=== PATIENT | female | born 1995 | race African-American/Black ===

== ENCOUNTER 2016-08-04 12:10 | Emergency (ER) | payer OTHER, SELFPAY ==
[2016-08-04 12:59] LABS: Bilirubin Negative (Negative); Blood, Urine Large (Negative); Clarity Slightly Cloudy (Clear); Glucose, Urine (Dipstick) Negative (Negative); Leukocyte Trace (Negative); Nitrite Negative (Negative); Protein, Urine (Dipstick) 30 mg/dL (Neg-Trace); Specific Gravity, Urine 1.025 (1.005-1.030); Urobilinogen 0.2 mg/dL (0.2-1.0)
[2016-08-04 13:00] LABS: Pregnancy Test - Urine (BHCG) Negative (Negative); Pregu Control Background? CLEAR/WHITE (CLR/WHITE); Pregu Control Bar Appear? YES (CONTROL BAR); Specific Gravity 1.025 (1.002-1.036)
[2016-08-04 13:11] LABS: Bacteria/HPF 2+ HPF (None Seen); RBC/HPF 21-50 HPF (0-3); Transitional Epithelial 0-3 HPF (0-3); WBC/HPF 21-50 HPF (0-3)
[2016-08-07 13:09] LABS: Chlamydia by PCR DETECTED (NotDetected); GC by PCR Not Detected (NotDetected)
== END 2016-08-04 13:25 | disposition home or self-care (01) ==
LOC: BURERS 12:10
DX: N30.01 Acute cystitis with hematuria (principal); N76.0 Acute vaginitis; F41.9 Anxiety disorder, unspecified; F32.9 Major depressive disorder, single episode, unspecified
CPT/HCPCS: 81003; 81015; 81025; 87480; 87491; 87510; 87591; 87660; 99284

== ENCOUNTER 2016-09-09 08:20 | Emergency (ER) | payer MEDICAID | END 2016-09-09 09:36 | disposition home or self-care (01) | LOC: BURERS 08:23 | DX: S01.81XA Laceration without foreign body of other part of head, initial encounter (principal); F41.9 Anxiety disorder, unspecified; F32.9 Major depressive disorder, single episode, unspecified; Y08.09XA Assault by strike by other specified type of sport equipment, initial encounter | CPT/HCPCS: 12011 ==

== ENCOUNTER 2017-01-26 16:08 | Emergency (ER) | payer MEDICAID, OTHER ==
[2017-01-26] MEDS ORDERED: Dexamethasone 4 mg/ml Vial ONE (16:31)
== END 2017-01-26 16:36 | disposition home or self-care (01) ==
LOC: BURERS 16:08
DX: J02.9 Acute pharyngitis, unspecified (principal); F41.9 Anxiety disorder, unspecified; F32.9 Major depressive disorder, single episode, unspecified
CPT/HCPCS: 99283; J1100

== ENCOUNTER 2017-07-08 09:17 | Emergency (ER) | payer OTHER ==
[2017-07-08 10:31] LABS: Bilirubin Negative (Negative); Blood, Urine Negative (Negative); Clarity Clear (Clear); Glucose, Urine (Dipstick) Negative (Negative); Leukocyte Trace (Negative); Nitrite Negative (Negative); Protein, Urine (Dipstick) Negative (Neg-Trace); Urobilinogen 0.2 mg/dL (0.2-1.0)
[2017-07-08 10:32] LABS: Bacteria/HPF 1+ HPF (None Seen); Crystals/HPF 1+ AMORPH URATES HPF (Negative); RBC/HPF None Seen HPF (0-3); WBC/HPF 0-3 HPF (0-3)
[2017-07-11 02:07] LABS: Chlamydia by PCR Not Detected (NotDetected); GC by PCR Not Detected (NotDetected)
== END 2017-07-08 11:00 | disposition home or self-care (01) ==
LOC: BURERS 09:17
DX: N76.0 Acute vaginitis (principal)
CPT/HCPCS: 81003; 81015; 87480; 87491; 87510; 87591; 87660; 99283

== ENCOUNTER 2017-07-09 22:39 | Emergency (ER) | payer OTHER | END 2017-07-09 23:00 | disposition home or self-care (01) | LOC: BURERS 22:39 | DX: L03.012 Cellulitis of left finger (principal); F17.210 Nicotine dependence, cigarettes, uncomplicated | CPT/HCPCS: 99283 ==

== ENCOUNTER 2018-01-07 08:10 | Emergency (ER) | payer OTHER ==
[2018-01-07] MEDS ORDERED: Lidocaine 1% PF 5 ML VIAL ONE (08:43)
[2018-01-07] MEDS ORDERED: cefTRIAXone\\ROCEPHIN 1 GM VIAL ONE (08:43)
[2018-01-07] MEDS ORDERED: methylPREDNISolone Sod Succ/PF 125 MG/2 ML VIAL ONE ×2 (08:43→08:46)
== END 2018-01-07 09:03 | disposition home or self-care (01) ==
LOC: BURERS 08:10
DX: J03.90 Acute tonsillitis, unspecified (principal); F41.9 Anxiety disorder, unspecified; F32.9 Major depressive disorder, single episode, unspecified
CPT/HCPCS: 96372; J0696; J2001; J2930

== ENCOUNTER 2018-05-14 22:01 | Emergency (ER) | payer OTHER | END 2018-05-14 22:14 | disposition home or self-care (01) | LOC: BURERS 22:01 | DX: S61.012A Laceration without foreign body of left thumb without damage to nail, initial encounter (principal); F41.9 Anxiety disorder, unspecified; F32.9 Major depressive disorder, single episode, unspecified; W26.0XXA Contact with knife, initial encounter | CPT/HCPCS: 12001 ==

== ENCOUNTER 2018-05-16 09:25 | Emergency (ER) | payer OTHER ==
[2018-05-16] MEDS ORDERED: Bacitracin Zinc 1 Packet ONE (09:39)
== END 2018-05-16 09:45 | disposition home or self-care (01) ==
LOC: BURERS 09:25
DX: S61.012D Laceration without foreign body of left thumb without damage to nail, subsequent encounter (principal); W26.0XXD Contact with knife, subsequent encounter
CPT/HCPCS: 99282